=== PATIENT | male | born 1965 | race Caucasian/White ===

== ENCOUNTER 2021-03-04 00:29 | Day surgery (SDC) | payer BC, SELFPAY ==
[2021-03-01 12:35] VITALS: BMI 32.6
--- NOTE | 2021-03-01 12:41 | PC.NURSE ---
Report to the Outpatient Waiting Room, entrance under the green pavilion located off [facility], at time 1000 on date 03/04/21. OR Time: 1200. - You will be asked a series of questions to screen for COVID 19 for your protection. - A mask is required within the hospital. - No visitors are allowed at this time. Preoperative COVID Testing Requirements: TO BRING CARD No COVID Test needed if: (proof is required; if not received patient will have Rapid Test prior to entry) - Patient has received COVID Vaccine at least 14 days prior to procedure date or - Patient has positive COVID test result within last 90 days of surgery date. COVID Test needed if above criteria is not met. Patients may have clear liquids (water, carbonated beverages, clear teas, apple juice) until 3 hours prior to surgery with a maximum of 20 ounces. - No food from midnight until time of surgery Take the following medications with a SIP of water the morning of surgery: NONE Medications to discontinue per physician: VITAMINS/SUPPLEMENTS Date to take last dose: 03/01/21 Please no make-up, nail nauruan, hairspray, perfume, deodorant, or body powder the day of surgery. No jewelry (including any body piercings) or valuables the day of surgery, leave them at home. Please take a shower or bath the night before, or the morning of, surgery with an antibacterial soap. Wear comfortable, loose fitting clothing. - Jewelry must be removed prior to entering the operating room. Rings and piercings that are not removed may be cut off. - The hospital will not accept responsibility for valuables. - Please leave all valuables, including medications, at home the day of surgery. If you are going home after surgery, a licensed [employer] company driver must drive you home. - NO public transportation without another adult. - We recommend that an adult stay with you for 24 hours following discharge. - We also recommend that you do not drive, make important decision, drink alcoholic beverages, or take any drugs that were not prescribed by your health care provider for at least 24 hours after your discharge time. Follow any additional instructions given to you from your surgeon. Telephone instructions given to CALVIN MEDRANO and asked if any additional questions and then verbalized understanding. Patient advised to call surgeon office or pre surgery nurse liaison [phone] if any additional questions.
--- NOTE | 2021-03-03 14:13 | WPDANESEPPF ---
Anes - Initial Pre Proc Eval Procedure: Operation Date: 03/04/21 11:45 Proposed Procedures p Cystoscopy, Right Ureteroscopy, Right Ureteral Stone Extraction, Possible Retrograde Pyelogram, Right Ureteral Stent Placement, - Tan Saba MD s Holmium Laser Lithotripsy - Tan Saba MD Date/Time: 03/03/21 14:13 Surgeon: Tan Saba MD Pre Op Diagnosis: bilat kidney stones Patient Data Age: 56 Gender: M Height: 1.73 m Weight: 97.52 kg Allergies Allergy/AdvReac Type Severity Reaction Status Date / Time codeine Allergy Mild CRAMPING Verified 03/04/21 10:17 Home Medications Medication Instructions Recorded Confirmed Type ibuprofen 400 mg PO Q6H PRN 03/01/21 03/01/21 History multivitamin 1 tablet PO DAILY 03/01/21 03/01/21 History Patient hx anesthesia problems: none Family hx anesthesia problems: none Results Review: All pre-operative results and documents have been reviewed as part of the pre-operative evaluation. [facility] Past Medical History Medical History (Updated 03/03/21 @ 14:13 by Jose Herron MD) Obesity Social History Social History Smoking status: Never smoker Alcohol intake: current Alcohol use details: A FEW/MONTH Substance use: never Substance use type: does not use Living arrangements: with family Spiritual care concerns: No Anes - Eval Final PreProcedure Day of Procedure 03/03/21 14:13 Patient weight: obese Heart: regular rate and rhythm Lungs: clear to auscultation and normal air movement Airway: Mallampati scale class II Neurological: alert and oriented Last oral intake: >/= 8 hours ASA classification: II Emergent: no Anesthetic plan: proceed Anesthesia type and monitoring: general LMA Results Review: All pre-operative results and documents have been reviewed as part of the pre-operative evaluation. Informed Consent: The patient's anesthetic plan and its attendant risks and benefits were discussed with the patient/family/POA. Questions were solicited and answers provided to the satisfaction of the patient/family/POA.
[2021-03-04] VITALS (7 sets, daily range): BP systolic 127–155; BP diastolic 70–96; PULSE 62–79; RESP 12–20; TEMP 36.2–36.8; O2SAT 98–100
--- NOTE | ~2021-03-04 | XR_ITS ---
EXAMINATION: XR retrograde pyelo w/stent RT DATE: 03/04/2021 13:11 INDICATION: Right internal ureteral stent placement TECHNIQUE: Fluoroscopic images from a right internal ureteral stent placement are submitted for melisa kang 74 seconds of fluoroscopy time. 4 fluoroscopic images FINDINGS: There is a right double-J internal ureteral stent projecting in expected position, with proximal [place] loop at the level of the renal pelvis and distal loop in the pelvis within the bladder lumen. IMPRESSION: 1. Right internal ureteral stent placement. Please refer to real-time procedural findings for izzy jasso. Reviewed, dictated and finalized at location B. T MANAGER IMPRESSION: 1. Right internal ureteral stent placement. Please refer to real-time procedu ral findings for details.
--- NOTE | 2021-03-04 06:41 | WPDHPUPDATE1 ---
History and Physical Update Update Date/Time: 03/04/21 06:41 History and Physical has been reviewed, including an updated exam of the patient. There are NO changes in the patient's condition. Risks, benefits, and alternatives have been discussed and questions answered. Patient agrees to proceed with procedure.
[2021-03-04] MEDS: LACTATED RINGERS 1,000 ML 30 ML IV CONT ×2 (10:50→13:16)
[2021-03-04] MEDS: ceFAZolin 2 GM/D5W 50 ML 2 GM/50 ML BAG IVPB (11:47)
[2021-03-04] MEDS: LIDOCAINE HCL 2% GEL UROJET 10 ML PKG MUCOUS MEM (11:57)
[2021-03-04] MEDS: KETOROLAC 30 MG/ML VIAL (*BKC) IV PUSH (13:10)
--- NOTE | 2021-03-04 13:14 | W.PM.PROC2 ---
Procedure Note - Detailed Date of Procedure 03/04/21 Pre-op Diagnosis Right ureteral stones Post-op Diagnosis same Procedure Performed cystoscopy, right ureteroscopy with laser lithotripsy, stone extraction, retrograde pyelography and right ureteral stent placement Surgeon Tan Saba MD Anesthesia general Description of Procedure patient brought to the op suite where he has prepped draped in routine sterile fashion while in a dorsal lithotomy position after the uneventful induction of a general LMA anesthetic. Cystoscopy is undertaken a 19 F rigid cystoscope. There was no urethral strictures. Bladder mucosa is normal hyperemia. There was no intravesical foreign body or neoplasm placed a 0.035 in glidewire into the right renal pelvis and dilated the distal ureter with a 10 cm balloon. Ureteroscopy was taken both with a semi-rigid ureteral scope and a 7.5 F flexible ureteral scope. He has multiple stones impacted at the iliac vessels. There was probably 8-10 stones measuring between 5 and 10 mm. Using a 273 micron holmium laser I have fractured the stones and extracted the largest pieces with a 1. 9 F disposable stone basket. Retrograde pyelography was used to outline renal pelvis and a 4.8 F variable length stent was placed with proximal coil in renal pelvis and distal coil in bladder. Scopes wires removed the patient was taken recovery good condition. Estimated Blood Loss 0 Drains Yes Packing No Pathology yes Complications No immediate complications Condition stable Disposition PACU
== END 2021-03-04 14:50 | disposition home or self-care (01) ==
PROVIDERS: PCP Internal Medicine; Visit Provider Urology
PROC: (CPT 52352; principal; 2021-03-04 11:45)
PROC: (CPT 52356; 2021-03-04 11:45)
DX: N20.1 Calculus of ureter (principal); R10.9 Unspecified abdominal pain; E66.9 Obesity, unspecified; Z68.32 Body mass index [BMI] 32.0-32.9, adult
CPT/HCPCS: 52356; 74420; 82365; 88300; A9270; C1726; C1769; C1894; C2617; J0690; J1100; J1885; J2250; J2405; J2704; J3010; J7120; Q9966

== ENCOUNTER 2021-03-19 15:07 | Outpatient (CLI) | payer BC, SELFPAY ==
--- NOTE | ~2021-03-19 | XR_ITS ---
XR abdomen/kub 1V DATE: 03/19/2021 15:26 INDICATION: Bilateral kidney stones. Lithotripsy 2 weeks ago. TECHNIQUE: AP projection, 2 views COMPARISON: 03/04/2021 right retrograde pyelogram with stent placement FINDINGS: Right internal urinary stent is noted in expected position. Numerous bilateral renal calcified calculi. No definite ureteral calcified calculus is noted. The psoas shadows are intact. Nonspecific bowel gas pattern without evidence of obstruction. Included lower lung zones are clear. Heart size appears normal. IMPRESSION: Right internal urinary stent Bilateral nephrolithiasis Reviewed, dictated and finalized at Location A. Reviewed, dictated and finalized at location A. RMAN
== END 2021-03-19 15:08 | disposition home or self-care (01) ==
LOC: ANHIMG 15:11
PROVIDERS: PCP Internal Medicine; Visit Provider Urology
DX: N20.0 Calculus of kidney (principal)
CPT/HCPCS: 74018

== ENCOUNTER 2021-04-27 09:32 | Outpatient (CLI) | payer BC, SELFPAY ==
--- NOTE | ~2021-04-27 | XR_ITS ---
EXAMINATION: XR abdomen/kub 1V INDICATION: Bilateral kidney stones, recent lithotripsy TECHNIQUE: Supine views of the abdomen were obtained on 2 radiographs. COMPARISON: 03/19/2021 FINDINGS: The right internal ureteral stent has been removed. There are three some fragment measuring up to 5 mm projecting in the right kidney upper pole. Additional smaller calculi are seen throughout the right kidney. There are greater than 20 stones seen in the left kidney, the largest which measur es 11 mm. There is a phlebolith of the left pelvis. No stones are identified along the expected cours es of the ureters or within the urinary bladder. The bowel gas pattern is normal. IMPRESSION: 1. Bilateral nephrolithiasis. Reviewed, dictated and finalized at location B.
== END 2021-04-27 09:33 | disposition home or self-care (01) ==
PROVIDERS: PCP Internal Medicine; Visit Provider Urology
DX: N20.0 Calculus of kidney (principal)
CPT/HCPCS: 74018

== ENCOUNTER 2021-11-02 09:31 | Outpatient (CLI) | payer BC, SELFPAY ==
--- NOTE | ~2021-11-02 | XR_ITS ---
EXAMINATION: XR abdomen/kub 1V INDICATION: Low back pain TECHNIQUE: Supine views of the abdomen were obtained on 2 radiographs. COMPARISON: 04/27/2021 FINDINGS: There are multiple stones of the kidneys. Stones in the right mid and lower kidney appear t o have decreased in size, possibly due to interval treatment change or passage. There is a phlebolith of the left pelvis. The bowel gas pattern is normal. Moderate lumbar spondylosis is noted. IMPRESSION: 1. Bilateral nephrolithiasis with possible decrease on the right. Reviewed, dictated and finalized at location A.
== END 2021-11-02 09:32 | disposition home or self-care (01) ==
PROVIDERS: PCP Internal Medicine; Visit Provider Urology
DX: Z12.5 Encounter for screening for malignant neoplasm of prostate (principal); M54.50 Low back pain, unspecified; N20.0 Calculus of kidney
CPT/HCPCS: 74018

== ENCOUNTER 2023-03-17 00:53 | Day surgery (SDC) | payer BC, SELFPAY ==
[2023-02-23 10:07] VITALS: BMI 31.8
--- NOTE | 2023-03-15 11:52 | SUR.PREOP ---
Patient called regarding upcoming procedure. Voicemail left with appointment times.
[2023-03-17 09:45] VITALS: BMI 29.7
[2023-03-17 10:01] VITALS: BP 126/93; PULSE 78; RESP 20; TEMP 36.4; O2SAT 97
[2023-03-17] MEDS: LACTATED RINGERS 1,000 ML 150 ML IV CONT (10:02)
--- NOTE | 2023-03-17 10:08 | SUR.PREOP ---
Pt's heart Irregular sinus rhythym. Dr. Syed made aware. Pt asymptomatic.
--- NOTE | 2023-03-17 10:12 | PM.HPGS ---
History of Present Illness History of Present Illness Consent: Risks, benefits, and alternatives have been discussed and questions answered. Patient agrees to proceed with procedure. Chief complaint: neoplasm screening Narrative: Reyna Bhatia is a 58 year old male here for first screening colonoscopy Review of Systems Constitutional: Constitutional: Denies headache(s) and Denies weakness Eyes: Eyes: Denies blurry vision ENT: Reports Normal hearing present, Denies headache(s) and Denies neck pain Cardiovascular: Cardiovascular: Denies chest pain and Denies dyspnea Respiratory: Respiratory: Denies dyspnea Gastrointestinal: Gastrointestinal: Reports no additional gastrointestinal complaints Genitourinary: Genitourinary: Denies dysuria Musculoskeletal: Musculoskeletal: Denies neck pain Integumentary/Breasts: Skin/Breast: Denies dry skin Neurologic: Reports Normal hearing present, Denies headache(s) and Denies weakness Psychiatric: Psychiatric: Denies anxiety Endocrine: Endocrine: Denies change in body appearance Hematologic/Lymphatic: Hematologic/Lymphatic: Denies easy bleeding Allergic/Immunologic: Allergic/Immunologic: Denies urticaria PMF Past Medical History Medical History (Updated 03/17/23 @ 10:13 by Lucas Lao MD) Colon cancer screening Obesity Family History Family History (Updated 03/09/23 @ 15:39 by Va Cervantes RT(R)) Father Diabetes mellitus Hypertension Heart disease Grandparent Diabetes mellitus Heart disease Hypertension Social History Social History (Updated 03/09/23 @ 15:42 by Va Cervantes RT(R)) Smoking status: Never smoker Alcohol intake: current Alcohol use details: biweekly Substance use: never Substance use type: does not use Living arrangements: with family Occupation/Education: occupation Additional occupation/education comments: Auto body tech for [employer] Gender identity (if verbalized by the patient): Male Spiritual care concerns: No Meds Home Medications and Allergies Home Medications Medication Instructions Recorded Confirmed Type ibuprofen 200 mg tablet 400 mg PO Q6H PRN Pain 03/01/21 03/17/23 History multivitamin 1 tablet PO DAILY 03/01/21 03/17/23 History amlodipine 5 mg tablet 5 mg PO DAILY #90 tabs 02/14/23 03/17/23 Rx tadalafil 5 mg tablet (Cialis) 5 mg PO DAILY #90 tabs 02/14/23 03/17/23 Rx Allergies Allergy/AdvReac Type Severity Reaction Status Date / Time codeine Allergy Mild CRAMPING Verified 03/17/23 09:44 Vital Signs Vital Signs - 24 hr 03/17/23 10:01 Temperature 97.5 F L Pulse Rate 78 Respiratory Rate 20 Blood Pressure 126/93 H Pulse Oximetry 97 Oxygen Delivery Room Air Exam Const: General: comfortable and no acute distress HENMT: Face/Nose/Sinus: Normal nares present Eyes: General: appearance normal, both eyes and all related structures Neck: Neck: no JVD Resp: Auscultation: clear to auscultation bilaterally Cardio: Rate: regular rate Rhythm: regular rhythm GI: Inspection: non-distended GI Palp: Yes Soft to palpation Skin: General skin exam: normal color Neuro: General: gait normal Speech: normal speech Extrem: General: normal to inspection Psych: Mental Status: mental status grossly normal Assessment and Plan Assessment and plan (1) Colon cancer screening: Code(s): Z12.11 - Encounter for screening for malignant neoplasm of colon Status: Acute Assessment and Plan: colonoscopy
--- NOTE | 2023-03-17 10:15 | P.PNAN_ITS ---
Anes - Initial Pre Proc Eval Procedure: Operation Date: 03/17/23 11:00 Proposed Procedures p Screening Colonoscopy - Lucas Lao MD Date/Time: 03/17/23 10:15 Surgeon: Lucas Lao MD Pre Op Diagnosis: neoplasm screening Patient Data Age: 58 Gender: M Height: 1.75 m Weight: 91.3 kg Last Vital Signs Temp 97.5 F L 03/17/23 10:01 Pulse 78 03/17/23 10:01 Resp 20 03/17/23 10:01 BP 126/93 H 03/17/23 10:01 Pulse Ox 97 03/17/23 10:01 O2 Del Method Room Air 03/17/23 10:01 Allergies Allergy/AdvReac Type Severity Reaction Status Date / Time codeine Allergy Mild CRAMPING Verified 03/17/23 09:44 Home Medications Medication Instructions Recorded Confirmed Type ibuprofen 200 mg tablet 400 mg PO Q6H PRN Pain 03/01/21 03/17/23 History multivitamin 1 tablet PO DAILY 03/01/21 03/17/23 History amlodipine 5 mg tablet 5 mg PO DAILY #90 tabs 02/14/23 03/17/23 Rx tadalafil 5 mg tablet (Cialis) 5 mg PO DAILY #90 tabs 02/14/23 03/17/23 Rx Patient hx anesthesia problems: none Family hx anesthesia problems: none Results Review: All pre-operative results and documents have been reviewed as part of the pre- operative evaluation. 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 Informed Consent: The patient's anesthetic plan and its attendant risks and benefits were discussed with the patient/family/POA. Questions were solicited and answers provided to the satisfaction of the patient/family/POA.
[2023-03-17 10:31] VITALS: BP 104/71; PULSE 63; RESP 20; O2SAT 97
[2023-03-17 10:41] VITALS: BP 109/79; PULSE 67; RESP 21; O2SAT 94
[2023-03-17 10:51] VITALS: BP 122/88; PULSE 58; RESP 22; O2SAT 99
== END 2023-03-17 10:55 | disposition home or self-care (01) ==
PROVIDERS: PCP Nurse Practitioner Family; Visit Provider Internal Medicine Gastroenterology
PROC: 0DJD8ZZ Inspection of Lower Intestinal Tract, Via Natural or Artificial Opening Endoscopic (ICD-10-PCS; CPT 45378; principal; 2023-03-17 11:00)
DX: Z12.11 Encounter for screening for malignant neoplasm of colon (principal); D12.3 Benign neoplasm of transverse colon; K64.8 Other hemorrhoids; E66.9 Obesity, unspecified; Z68.29 Body mass index [BMI] 29.0-29.9, adult
CPT/HCPCS: 45385; 88305; J2704; J7120